=== PATIENT | female | born 1990 | race Two or more races ===

== ENCOUNTER 2025-06-10 18:12 | Emergency (ER) | payer BC, OTHER ==
[~2025-06-10] VITALS: Ht 167.6 cm; Wt 65.8 kg
[2025-06-10 18:14] VITALS: BP 128/87; PULSE 80; RESP 18; TEMP 98.6; O2SAT 98
--- NOTE | 2025-06-10 19:22 | DVH ---
CLINICAL HISTORY: right knee pain TECHNIQUE: 3 views of the right knee were obtained. COMPARISON: None FINDINGS: No acute fracture or dislocation is seen. No joint effusion is evident. There are no significant deg enerative changes. IMPRESSION: NO ACUTE RADIOGRAPHIC ABNORMALITY OF THE RIGHT KNEE.
--- NOTE | 2025-06-10 19:22 | DVH ---
CLINICAL INDICATION: right foot pain TECHNIQUE: 3 radiographic views of the right foot were obtained. Comparison: None FINDINGS/IMPRESSION: Bony alignment is normal There are no fractures or dislocations No radiopaque foreign bodies.
[2025-06-10] MEDS ORDERED: ACET500T58 PO (19:44)
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
== END 2025-06-10 19:53 | disposition home or self-care (01) ==
LOC: ER 18:15
DX: S83.91XA Sprain of unspecified site of right knee, initial encounter (principal); S90.31XA Contusion of right foot, initial encounter; Z79.899 Other long term (current) drug therapy; X58.XXXA Exposure to other specified factors, initial encounter; Y93.89 Activity, other specified; Y92.89 Other specified places as the place of occurrence of the external cause; Y99.8 Other external cause status
CPT/HCPCS: 29505; 73562; 73630